=== PATIENT | female | born 2000 | race Caucasian/White ===

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

== ENCOUNTER 2024-09-21 15:58 | Emergency (ER) | payer OTHER, SELFPAY ==
[2024-09-21 16:10] VITALS: BP 114/84; PULSE 120; RESP 18; TEMP 36.6; O2SAT 100
--- NOTE | 2024-09-21 18:00 | PC.NURSE ---
Pt called to be seen by JEWEL WAXER and had no answer
== END 2024-09-21 18:26 | disposition left against medical advice (07) ==
LOC: ANHED 18:07
PROVIDERS: PCP Family Medicine Adolescent Medicine
DX: O26.892 Other specified pregnancy related conditions, second trimester (principal); R39.9 Unspecified symptoms and signs involving the genitourinary system; Z3A.21 21 weeks gestation of pregnancy
CPT/HCPCS: 99199